=== PATIENT | female | born 1965 | race Caucasian/White ===

== ENCOUNTER 2019-01-17 16:47 | Emergency (ER) | payer SELFPAY ==
[~2019-01-17] VITALS: Ht 157.5 cm; Wt 81.6 kg
[2019-01-17 17:11] VITALS: BP 120/54
--- NOTE | 2019-01-17 17:19 | NUR ---
PATIENT BROUGHT IN BY ROMERO CARBAJAL TO MEDICALLY CLEAR PATIENT FOR PREBOOK. PATIENT CUFFED. AWAKE/ALERT/ORIENTED. TAKING OXYBUTIN FOR CHRONIC LOW BACK PAIN. PER PATIENT,COMFORTABLE AT THIS TIME
--- NOTE | 2019-01-17 17:28 | NUR ---
DR. GARBER ASSESSING PATIENT IN CHAIR E
[2019-01-17 17:42] VITALS: BP 122/60
--- NOTE | 2019-01-17 17:42 | NUR ---
Patient discharged with v/s stable. Written and verbal after care instructions given and explained. Patient alert, oriented and verbalized understanding of instructions. Police with in custody. All questions addressed prior to discharge. ID band removed. Patient advised to follow up with PMD. Rx of OXYBUTIN,FLOMAX given. Patient educated on indication of medication including possible reaction and side effects. Opportunity to ask questions provided and answered.
--- NOTE | 2019-01-17 17:42 | NUR ---
PRESCRIPTION AND DISCHARGE INSTRUCTION SHEETS GIVEN TO ROMERO CARBAJAL. PATIENT UNDERSTOOD INSTRUCTIONS.
== END 2019-01-17 17:42 | disposition home or self-care (01) ==
LOC: MED 16:47
DX: M54.5 Low back pain (principal); G89.29 Other chronic pain; R10.2 Pelvic and perineal pain; Z90.710 Acquired absence of both cervix and uterus
CPT/HCPCS: 99283